=== PATIENT | male | born 1995 | race Caucasian/White ===

== ENCOUNTER 2017-05-18 12:54 | Emergency (ER) | payer OTHER ==
[~2017-05-18] VITALS: Ht 182.9 cm; Wt 68.5 kg
[2017-05-18 13:02] VITALS: Ht 182.9 cm; Wt 68.5 kg
[2017-05-18] MEDS ORDERED: IBUPROFEN 600 MG TAB PO STA (13:15)
--- NOTE | 2017-05-18 13:56 | DIAGNOSTIC IMAGING REPORT ---
CHEST 2 VIEWS ROUTINE CLINICAL HISTORY: 22 years-old Male presenting with Flu like. Fever. Cough, bodyaches. TECHNIQUE: PA and lateral views of the chest were obtained. COMPARISON: None. FINDINGS: Cardiomediastinal silhouette normal. Lungs and pleural spaces clear. Osseous structures normal. Upper abdomen normal. IMPRESSION: 1. No acute cardiopulmonary disease. Electronically signed by: Juan F Garcia M.D. 05/18/2017 1:54 PM Dictated Date/Time: 05/18/2017 1:54 PM
[2017-05-18 14:05] LABS: INFLUENZA B ANTIGEN Neg for Influ B (NEG)
[2017-05-18] MEDS ORDERED: OSELTAMIVIR PHOSPHATE 75 MG CAP PO STA (14:09)
[2017-05-18] MEDS ORDERED: OSEL75CA12 PO (14:38)
[2017-05-18 14:50] VITALS: BP 121/80; PULSE 124; TEMP 37.5; O2SAT 98
--- NOTE | 2017-05-18 15:23 | EMERGENCY ROOM VISIT NOTE ---
History First contact with patient: 13:06 Chief Complaint: FLU LIKE SX Stated Complaint: PEREZ, BODY ACHE, CHILLS, FEVER,FATIGUE History of Present Illness The patient is a 22 year old male who presents to the Emergency Room with complaints of body aches, fevers, chills, and fatigue for the past 12 hours. He states that he did have a cough yesterday that was nonproductive. The patient is a student locally with multiple potential exposures to disease. He did take Tylenol with only minimal improvement of a 102F temperature at home. The patient considers himself usually healthy without chronic medical disease. He rates his discomfort a 4/10. Review of Systems More than 10 systems were reviewed and otherwise negative with the exception of history of present illness. Past Medical/Surgical History No chronic medical disease Family History No pertinent family history Social History Smoking Status: Never Smoker Occupation Status: [employer] student Current/Historical Medications Scheduled Oseltamivir (Tamiflu), 75 MG PO BID Physical Exam Vital Signs Date Time Temp Pulse Resp B/P (MAP) Pulse Ox O2 Delivery O2 Flow Rate FiO2 05/18/17 14:50 37.5 124 16 121/80 98 05/18/17 13:29 110 18 108/67 Room Air 05/18/17 13:02 37.7 120 18 136/79 94 Room Air Physical Exam VITALS: Vitals are noted on the nurse's note and reviewed by myself. Vital signs with low grade fever GENERAL: Well-developed, well-nourished, Male, who is in no acute distress and resting comfortably. Patient is cooperative with the examination. HEAD: Normocephalic atraumatic. EARS: External ear normal. External auditory canals clear, tympanic membranes pearly fish without erythema or effusion bilaterally. MOUTH: Mucous membranes moist. Tonsils are not enlarged. Pharynx without erythema, blood, or exudate. Uvula midline. Airway patent. NECK: Supple without nuchal rigidity. No lymphadenopathy. No thyromegaly. Cervical spine is nontender. No meningismus. HEART: Regular rate and rhythm without murmurs gallops or rubs. LUNGS: Clear to auscultation bilaterally without wheezes, rales or rhonchi. No retractions or accessory muscle use. Medical Decision & Procedures ER Provider Diagnostic Interpretation: CHEST 2 VIEWS ROUTINE CLINICAL HISTORY: 22 years-old Male presenting with Flu like. Fever. Cough, bodyaches. TECHNIQUE: PA and lateral views of the chest were obtained. COMPARISON: None. FINDINGS: Cardiomediastinal silhouette normal. Lungs and pleural spaces clear. Osseous structures normal. Upper abdomen normal. IMPRESSION: 1. No acute cardiopulmonary disease. Laboratory Results Test 05/18/17 13:27 Influenza Type A Antigen POS for Influ A (NEG) Influenza Type B Antigen Neg for Influ B (NEG) Medications Administered Medications (Trade) Dose Ordered Sig/River Route Start Time Stop Time Status Last Admin Dose Admin Ibuprofen (Motrin Tab) 600 mg NOW STAT PO 05/18/17 13:15 05/18/17 13:17 DC 05/18/17 13:25 600 MG Oseltamivir Phosphate (Tamiflu Cap) 75 mg NOW STAT PO 05/18/17 14:09 05/18/17 14:10 DC 05/18/17 14:48 75 MG ED Course Physical exam and history were performed. Nursing notes, EMR, and Medication List were personally reviewed. Patient appears to have fever symptoms for the past 12 hours. She did have a cough yesterday and has been running a low-grade fever. The patient was given ibuprofen here in the department. X-ray was performed and reviewed by myself and radiology as showing no acute process. Influenza swabbing did return as positive for influenza A. He was given Tamiflu here in the department. I did give him a fluid trial, and he was able to tolerate p.o. fluids without difficulty. He does not appear to need IV fluids or further intervention as his symptoms appear most consistent with influenza. The patient will be given a continuation course of the Tamiflu as well as instructions to use over-the- counter antipyretics. He was otherwise invited back to the ER with any new, worsening, or concerning symptoms. The chart was completed utilizing [employer] Speech Voice Recognition Software. Grammatical errors, random word insertions, pronoun errors, and incomplete sentences are an occasional consequence of this system due to software limitations, ambient noise, and hardware issues. Any formal questions or concerns about the content, text, or information contained within the body of this dictation should be directly addressed to the provider for clarification. . Medical Decision Differential diagnosis: Etiologies such as viral syndrome, otitis, pharyngitis, pneumonia, influenza, meningitis, urinary tract infection, sepsis, bacteremia, as well as others were entertained. Impression Primary Impression: Influenza A Departure Information Dispostion Home / Self-Care Condition GOOD Prescriptions Oseltamivir (Tamiflu) 75 Mg Cap 75 MG PO BID for 5 Days, #10 CAP Prov: Gt Kingsley PA-C 05/18/17 Forms HOME CARE DOCUMENTATION FORM, IMPORTANT VISIT INFORMATION Patient Instructions My [facility] [place], ED Flu Additional Instructions You were seen and evaluated today on an emergency basis only. This is not a substitute for, or an effort to provide, complete comprehensive medical care. It is not possible to recognize and treat all injuries or illnesses in a single emergency department visit. For this reason it is recommended that you followup with S this week for recheck of your condition. For baseline pain relief you may alternate ibuprofen and acetaminophen every 4 hours for pain control. Take 600 mg ibuprofen (Advil) and then 4 hours later take 1000 mg acetaminophen (Tylenol). Do not take more than 3000 mg acetaminophen in a single day. Take Tamiflu twice daily for the next 5 days You are welcome to return to the emergency department anytime with new, worsening, or concerning symptoms.
== END 2017-05-18 14:52 | disposition home or self-care (01) ==
LOC: C.EDB 12:57 → C.EDC 14:52
DX: J10.1 Influenza due to other identified influenza virus with other respiratory manifestations (principal)